=== PATIENT | female | born 1930 | race African-American/Black ===

== ENCOUNTER 2018-08-23 20:08 | Inpatient (IN) | payer MEDICARE, MEDICAID ==
[~2018-08-23] VITALS: Ht 157.5 cm; Wt 51.7 kg
[2018-08-23 21:24] LABS: BASOPHILS % 1.2 % (0.0-2.0); EOSINOPHILS % 2.9 % (0.0-5.0); HEMATOCRIT. 35.8 % (36.0-48.0); HEMOGLOBIN. 11.4 g/dL (12.0-16.0); MEAN CORPUSCULAR HEMOGLOBIN 27.3 pg (28.0-32.0); MEAN CORPUSCULAR VOLUME 85.4 fL (81.0-99.0); MEAN PLATELET VOLUME 9.6 fl (7.4-10.4); NEUTROPHILS % 36.9 % (40.0-76.0); PLATELET 122 x1000/uL (130-400); RED BLOOD CELL COUNT 4.19 mill/uL (4.2-5.4)
[2018-08-23 21:30] LABS: CHLORIDE 112 mEq/L (98-107)
[2018-08-23 21:35] LABS: INR 1.1; PROTHROMBIN TIME 11.3 sec (9.1-11.1)
[2018-08-23 22:03] LABS: CLARITY URINE CLEAR (CLEAR); COLOR URINE YELLOW (YELLOW); KETONES URINE NEGATIVE (NEGATIVE); LEUKOCYTE ESTERASE URINE TRACE (NEGATIVE); NITRITE URINE NEGATIVE (NEGATIVE); OCCULT BLOOD URINE NEGATIVE (NEGATIVE); PH URINE 7.5 (4.5-8.0); PROTEIN URINE NEGATIVE (NEGATIVE); SPECIFIC GRAVITY URINE 1.004 (1.005-1.030); UROBILINOGEN URINE 0.2 E.U./dL (0.2-1.0)
[2018-08-23] MEDS ORDERED: ASPIRIN 325MG TABLET PO ONE (22:45)
[2018-08-24] MEDS ORDERED: ACETAMINOPHEN 325MG TABLET PO PRN (07:45)
[2018-08-24] MEDS ORDERED: ONDANSETRON HCL 4MG/2ML INJ IV PRN (07:45)
[2018-08-24] MEDS ORDERED: DEXTROSE 50% WATER 50ML SYRINGE IV ONE (08:41)
[2018-08-24 10:00] VITALS: BP 141/69
[2018-08-24] MEDS: CLOPIDOGREL 75MG TABLET PO SCH (11:16)
[2018-08-24] MEDS: AMLODIPINE 5MG TABLET PO SCH (11:16)
[2018-08-24] MEDS: ENOXAPARIN 30MG/0.3ML SYR SUBCUT SCH (11:17)
[2018-08-24 12:00] VITALS: BP 127/93
[2018-08-24 16:00] VITALS: BP 116/71
[2018-08-24 20:00] VITALS: BP 171/72
[2018-08-25] VITALS: BP 139/71
[2018-08-25 06:00] VITALS: BP 111/63
[2018-08-25 06:43] LABS: EOSINOPHILS % 3.8 % (0.0-5.0); HEMATOCRIT. 32.9 % (36.0-48.0); HEMOGLOBIN. 10.8 g/dL (12.0-16.0); MEAN CORPUSCULAR HEMOGLOBIN 27.4 pg (28.0-32.0); MEAN CORPUSCULAR VOLUME 83.6 fL (81.0-99.0); MEAN PLATELET VOLUME 9.4 fl (7.4-10.4); MONOCYTES % 12.7 % (2.0-8.0); NEUTROPHILS % 41.5 % (40.0-76.0); PLATELET 107 x1000/uL (130-400); RED BLOOD CELL COUNT 3.93 mill/uL (4.2-5.4)
[2018-08-25 08:00] VITALS: BP 141/67
[2018-08-25] MEDS: AMLODIPINE 5MG TABLET PO SCH (09:16)
[2018-08-25] MEDS: CLOPIDOGREL 75MG TABLET PO SCH (09:16)
[2018-08-25] MEDS: ENOXAPARIN 30MG/0.3ML SYR SUBCUT SCH (09:17)
[2018-08-25] MEDS: DEXT 5%/0.45% NACL 1000ML 1,000 ML IV SCH (10:33)
[2018-08-25] MEDS ORDERED: SODIUM POLYSTYRENE SULFONATE 15 G/60 ML BOT PO NR (11:00)
[2018-08-25 12:00] VITALS: BP 127/70
[2018-08-25] MEDS ORDERED: SODIUM CHLORIDE 0.9% 500 ML IV SCH (13:00)
[2018-08-25 15:30] VITALS: BP 148/78
[2018-08-25 20:00] VITALS: BP 115/59
[2018-08-25] MEDS ORDERED: DEXTROSE 50% WATER 50ML SYRINGE IV PRN (20:15)
[2018-08-25] MEDS: BLOOD SUGAR DIAGNOSTIC STRIP TEST SCH (21:06)
[2018-08-25] MEDS: CARVEDILOL 3.125 MG TABLET PO SCH (21:49)
[2018-08-26] VITALS (8 sets, daily range): BP systolic 118–172; BP diastolic 55–77
[2018-08-26 06:33] LABS: HEMATOCRIT. 32.9 % (36.0-48.0); HEMOGLOBIN. 10.7 g/dL (12.0-16.0); MEAN CORPUSCULAR HEMOGLOBIN 27.3 pg (28.0-32.0); MEAN PLATELET VOLUME 9.6 fl (7.4-10.4); PLATELET 97 x1000/uL (130-400); RED BLOOD CELL COUNT 3.91 mill/uL (4.2-5.4)
[2018-08-26] MEDS: DEXT 5%/0.45% NACL 1000ML 1,000 ML IV SCH ×3 (06:40→23:17)
[2018-08-26] MEDS: BLOOD SUGAR DIAGNOSTIC STRIP TEST SCH ×4 (07:00→20:45)
[2018-08-26] MEDS: CARVEDILOL 3.125 MG TABLET PO SCH ×2 (08:41→20:45)
[2018-08-26] MEDS: CLOPIDOGREL 75MG TABLET PO SCH (08:41)
[2018-08-26] MEDS: AMLODIPINE 5MG TABLET PO SCH (08:41)
[2018-08-26] MEDS: ENOXAPARIN 30MG/0.3ML SYR SUBCUT SCH (08:42)
[2018-08-26 10:49] LABS: PLATELET ESTIMATE DECREASED
[2018-08-27] VITALS: BP 153/73
[2018-08-27 04:00] VITALS: BP 155/65
[2018-08-27 06:55] LABS: HEMATOCRIT. 34.1 % (36.0-48.0); MEAN CORPUSCULAR HEMOGLOBIN 27.1 pg (28.0-32.0); MEAN CORPUSCULAR VOLUME 84.1 fL (81.0-99.0); MEAN PLATELET VOLUME 9.3 fl (7.4-10.4); PLATELET 101 x1000/uL (130-400); RED BLOOD CELL COUNT 4.05 mill/uL (4.2-5.4); RED CELL DISTRIBUTION WIDTH 16.6 % (11.6-14.6)
[2018-08-27] MEDS: BLOOD SUGAR DIAGNOSTIC STRIP TEST SCH ×4 (07:10→21:00)
[2018-08-27 07:17] LABS: CHLORIDE 114 mEq/L (98-107)
[2018-08-27 08:00] VITALS: BP 187/70
[2018-08-27 08:17] LABS: FOLICLE STIMULATING HORMONE 60.2 mIU/mL (.); LUTEINIZING HORMONE 38.6 mIU/mL (.)
[2018-08-27] MEDS: AMLODIPINE 5MG TABLET PO SCH (08:18)
[2018-08-27] MEDS: CLOPIDOGREL 75MG TABLET PO SCH (08:18)
[2018-08-27] MEDS: CARVEDILOL 3.125 MG TABLET PO SCH ×2 (08:18→21:00)
[2018-08-27] MEDS: ENOXAPARIN 30MG/0.3ML SYR SUBCUT SCH (08:18)
[2018-08-27 10:55] LABS: HEPATITIS B SURFACE ANTIGEN NEGATIVE
[2018-08-27 11:25] LABS: HEPATITIS A AB IGM NEGATIVE (NEGATIVE)
[2018-08-27 12:00] VITALS: BP 140/75
[2018-08-27] MEDS: DEXT 5%/0.45% NACL 1000ML 1,000 ML IV SCH (13:16)
[2018-08-27 15:13] LABS: PLATELET ESTIMATE DECREASED
[2018-08-27 16:12] VITALS: BP 151/66
[2018-08-27 20:00] VITALS: BP 118/60
[2018-08-28] VITALS (8 sets, daily range): BP systolic 112–152; BP diastolic 51–73
[2018-08-28] MEDS: DEXT 5%/0.45% NACL 1000ML 1,000 ML IV SCH (06:27)
[2018-08-28] MEDS: BLOOD SUGAR DIAGNOSTIC STRIP TEST SCH ×3 (06:27→17:54)
[2018-08-28 07:10] LABS: HEMATOCRIT. 35.8 % (36.0-48.0); HEMOGLOBIN. 11.5 g/dL (12.0-16.0); MEAN CORPUSCULAR HEMOGLOBIN 27.1 pg (28.0-32.0); MEAN CORPUSCULAR VOLUME 84.6 fL (81.0-99.0); PLATELET 120 x1000/uL (130-400); RED BLOOD CELL COUNT 4.23 mill/uL (4.2-5.4); RED CELL DISTRIBUTION WIDTH 16.7 % (11.6-14.6)
[2018-08-28 07:41] LABS: D-DIMER 0.8 mg/L FEU (<0.50); PARTIAL THROMBOPLASTIN TIME 30.2 sec (23.4-31.0)
[2018-08-28 08:17] LABS: C-PEPTIDE 5.5 ng/mL (1.1-4.4); INSULIN 28.2 uIU/mL (2.6-24.9)
[2018-08-28] MEDS: AMLODIPINE 5MG TABLET PO SCH (08:55)
[2018-08-28] MEDS: CARVEDILOL 3.125 MG TABLET PO SCH (08:56)
[2018-08-28 12:55] LABS: PLATELET ESTIMATE SLIGHTLY INCREASED
[2018-08-28] MEDS ORDERED: MELO-106 PO (17:26)
[2018-08-28] MEDS ORDERED: LORA10CA MT (17:28)
[2018-08-31 09:06] LABS: LUPUS ANTICOAG INTERPRETATION Comment: (.); PTT-LA 38.8 sec (0.0-51.9)
== END 2018-08-28 18:35 | disposition home health service (06) | DRG 69 ==
LOC: ER 20:23 → 8WST 23:39 → EDBEDREQ 23:43 → EDBEDREQTM 23:43 → ENRESERV 08-24 08:17
PROVIDERS: ADMIT Internal Medicine; ATTEND Internal Medicine
PROC: 4A00X4Z Measurement of Central Nervous Electrical Activity, External Approach (ICD-10-PCS; principal; 2018-08-26)
DX: G45.9 Transient cerebral ischemic attack, unspecified (principal); N17.0 Acute kidney failure with tubular necrosis; D61.818 Other pancytopenia; E16.2 Hypoglycemia, unspecified; E87.5 Hyperkalemia; K21.9 Gastro-esophageal reflux disease without esophagitis; E87.8 Other disorders of electrolyte and fluid balance, not elsewhere classified; N18.9 Chronic kidney disease, unspecified; M13.0 Polyarthritis, unspecified; I13.10 Hypertensive heart and chronic kidney disease without heart failure, with stage 1 through stage 4 chronic kidney disease, or unspecified chronic kidney disease; R47.1 Dysarthria and anarthria; Z95.0 Presence of cardiac pacemaker
CPT/HCPCS: 36415; 71045; 80048; 80061; 82533; 82947; 82962; 83001; 83002; 83525; 84132; 84443; 84484; 84681; 85049; 85379; 85384; 85613; 85732; 86705; 86709; 86803; 87340; 93005; 93306; 93880; 97162; 97166; 99291; J1650; J7040

== ENCOUNTER 2018-10-01 12:14 | Emergency (ER) | payer MEDICARE, MEDICAID ==
[~2018-10-01] VITALS: Ht 160 cm; Wt 50.0 kg
[~2018-10-01 12:14] MED LIST: LORA10CA MT; MELO-106 PO
[2018-10-01 13:24] LABS: BASOPHILS % 0.6 % (0.0-2.0); EOSINOPHILS % 1.8 % (0.0-5.0); HEMATOCRIT. 33.3 % (36.0-48.0); HEMOGLOBIN. 10.7 g/dL (12.0-16.0); LYMPHOCYTES % 10.5 % (20.0-50.0); MEAN CORPUSCULAR HEMOGLOBIN 27.1 pg (28.0-32.0); MEAN CORPUSCULAR VOLUME 84.8 fL (81.0-99.0); MEAN PLATELET VOLUME 8.7 fl (7.4-10.4); MONOCYTES % 6.4 % (2.0-8.0); NEUTROPHILS % 80.7 % (40.0-76.0); PLATELET 109 x1000/uL (130-400); RED BLOOD CELL COUNT 3.93 mill/uL (4.2-5.4); RED CELL DISTRIBUTION WIDTH 16.9 % (11.6-14.6)
[2018-10-01 13:32] LABS: CHLORIDE 113 mEq/L (98-107); INR 1.1
[2018-10-01 16:38] VITALS: BP 137/68
== END 2018-10-01 16:57 | disposition home or self-care (01) ==
LOC: ER 12:14
DX: K62.89 Other specified diseases of anus and rectum (principal); K21.9 Gastro-esophageal reflux disease without esophagitis; I10 Essential (primary) hypertension; Z95.0 Presence of cardiac pacemaker
CPT/HCPCS: 36415; 74176; 99284